=== PATIENT | female | born 1945 | race Caucasian/White ===

== ENCOUNTER 2017-06-23 12:19 | Outpatient (CLI) | payer MEDICARE ==
[2017-06-23] MEDS ORDERED: SALINE FLUSH 10 ML DISP.SYRIN IVF ONE (14:00)
[2017-06-23] MEDS ORDERED: HEPARIN SODIUM 500 UNIT/5 ML DISP.SYRIN IV ONE (14:00)
== END 2017-06-23 12:20 ==
LOC: INF 12:19
PROVIDERS: ATTEND Family Medicine
DX: J44.9 Chronic obstructive pulmonary disease, unspecified (principal)
CPT/HCPCS: 96523; J1642